=== PATIENT | female | born 1955 | race Caucasian/White ===

== ENCOUNTER 2022-02-08 08:25 | Emergency (ER) | payer MEDICARE, BC ==
[2022-02-08 09:46] LABS: ESTIMATED GFR 71 mL/min (>60)
[2022-02-08] MEDS ORDERED: Iopamidol 755 Mg/ML 100 ML Bottle IV SCH (10:45)
[2022-02-08] MEDS ORDERED: Sodium Chloride 0.9% 100 ML IV SCH (10:45)
[2022-02-08] MEDS ORDERED: Clopidogrel 75 MG Tab PO ONE (13:00)
[2022-02-08] MEDS ORDERED: Aspirin 81 MG Tab.Chew PO ONE (13:00)
== END 2022-02-08 15:19 | disposition other institution (70) ==
LOC: JP.ED 08:25
DX: I63.9 Cerebral infarction, unspecified (principal); F17.210 Nicotine dependence, cigarettes, uncomplicated; Z88.0 Allergy status to penicillin
CPT/HCPCS: 36415; 70450; 70450-26; 70496; 70496-26; 70498; 70498-26; 80053; 85025; 99285; A9270-GY; J3490; Q9967